=== PATIENT | female | born 1970 | race Caucasian/White ===

== ENCOUNTER 2020-12-06 19:41 | Emergency (ER) | payer BC ==
[2020-12-06] MEDS ORDERED: Aspirin 81 MG Tab.Chew PO ONE (19:50)
[2020-12-06] MEDS ORDERED: Sodium Chloride 0.9% 10 ML Syringe FLUSH PRN (19:50)
[2020-12-06] MEDS ORDERED: Aspirin 81 MG Tab.Chew ONE (19:52)
[2020-12-06] MEDS: Nitroglycerin 0.4 MG Tab.SL SL ONE ×2 (20:04→20:22)
[2020-12-06 20:39] LABS: CHLORIDE,CL 103 mmol/L (98-107); SODIUM,NA 140 mmol/L (136-145)
[2020-12-06] MEDS ORDERED: GI Cocktail Oral Solution 30 ML PO ONE (21:00)
[2020-12-06] MEDS ORDERED: diphenhydrAMINE 50 MG/ML SDV ONE (21:20)
[2020-12-06] MEDS ORDERED: diphenhydrAMINE 50 MG/ML SDV IVPUSH ONE (21:25)
--- NOTE | 2020-12-06 21:42 | EDM.PDOC ---
ED HPI GENERAL MEDICAL PROBLEM - General Chief Complaint: Chest Pain Stated Complaint: chest pain Time Seen by Provider: 12/06/20 20:02 Source of Information: Reports: Patient History Limitations: Reports: No Limitations - History of Present Illness INITIAL COMMENTS - FREE TEXT/NARRATIVE: Patient comes to ER with complaint of epigastric pain that radiates up to both sides of her neck/jaw that started around 7:10pm tonight. Guys sweaty. Lightheaded. No SOB. Has had similar pain episodes in past but not this bad. No history of CAD/heart disease. No formal diagnosis of GERD/hiatal hernia. Has family history of relatives with ND in their 50s. In past no specific trigger for episodes noted. Nothing in particular made them go away. chest pain Pain Score (Numeric/FACES): 7 - Related Data Allergies Allergy/AdvReac Type Severity Reaction Status Date / Time ketorolac [From Toradol] Allergy Anaphylactic Verified 12/06/20 19:41 Shock Home Meds: Home Meds Cholecalciferol (Vitamin D3) [Vitamin D3] 1 tab PO DAILY 12/06/20 [History] Furosemide 20 mg PO DAILY PRN 12/06/20 [History] Levothyroxine Sodium 1 tab PO DAILY 12/06/20 [History] Loratadine 10 mg PO DAILY 12/06/20 [History] Soy Isofla/Blk Cohosh/Mag Bark [Estroven 155 mg Capsule] 1 cap PO DAILY 12/06/20 [History] Ubidecarenone [COQ-10] 1 cap PO DAILY 12/06/20 [History] atorvaSTATin Calcium [Atorvastatin Calcium] 10 mg PO DAILY 12/06/20 [History] buPROPion HCL [Bupropion Xl] 150 mg PO DAILY 12/06/20 [History] clonazePAM [Clonazepam] 0.5 mg PO BEDTIME PRN 12/06/20 [History] Past Medical History HEENT History: Reports: Allergic Rhinitis Cardiovascular History: Reports: High Cholesterol Musculoskeletal History: Reports: Other (See Below) (periodic lower extremity edema) Psychiatric History: Reports: Anxiety Endocrine/Metabolic History: Reports: Hypothyroidism, Obesity/BMI 30+ Social & Family History - Tobacco Use Tobacco Use Status *Q: Former Tobacco User Used Tobacco, but Quit: Yes Month/Year Tobacco Last Used: 2004 - Caffeine Use Caffeine Use: Reports: None - Recreational Drug Use Recreational Drug Use: No ED ROS GENERAL - Review of Systems Review Of Systems: See Below Constitutional: Reports: Diaphoresis. Denies: Fever, Chills, Malaise, Weakness, Fatigue, Decreased Appetite, Weight Loss HEENT: Reports: No Symptoms Respiratory: Reports: No Symptoms Cardiovascular: Reports: Chest Pain, Lightheadedness. Denies: Dyspnea on Exertion, Palpitations, Syncope GI/Abdominal: Reports: No Symptoms : Reports: No Symptoms Musculoskeletal: Reports: No Symptoms Skin: Reports: No Symptoms Neurological: Denies: Headache, Numbness, Paresthesia, Tremors, Trouble Speaking, Gait Disturbance Psychiatric: Reports: No Symptoms ED EXAM, GENERAL - Physical Exam Exam: See Below Exam Limited By: No Limitations General Appearance: Alert, WD/WN, No Apparent Distress Eye Exam: Bilateral Eye: EOMI, PERRL Ears: Normal External Exam, Hearing Grossly Normal Nose: No: Nasal Deformity, Nasal Swelling, Nasal Drainage Throat/Mouth: Normal Lips, Normal Voice, No Airway Compromise Head: Atraumatic, Normocephalic Neck: Normal Inspection, Supple, Non-Tender, Full Range of Motion Respiratory/Chest: No Respiratory Distress, Lungs Clear, Normal Breath Sounds, No Accessory Muscle Use, Chest Non-Tender Cardiovascular: Normal Peripheral Pulses, Regular Rate, Rhythm, No Edema, No Murmur GI/Abdominal: Normal Bowel Sounds, Soft, Non-Tender, No Distention, No Abnormal Bruit (Female) Exam: Deferred Rectal (Female) Exam: Deferred Back Exam: Normal Inspection. No: CVA Tenderness (L), CVA Tenderness (R), Muscle Spasm Extremities: Normal Inspection, Normal Range of Motion, Non-Tender, No Pedal Edema, Normal Capillary Refill Neurological: Alert, Oriented, Normal Cognition, Normal Gait, No Motor/Sensory Deficits Psychiatric: Normal Affect, Normal Mood Skin Exam: Warm, Dry, Intact, Normal Color #1 Interpretation EKG Date: 12/06/20 Time: 18:58 Rhythm: NSR Rate (Beats/Min): 71 [place]: Normal P-Wave: Present QRS: Normal ST-T: Normal QT: Normal Course - Vital Signs Last Recorded V/S: Last Vital Signs Temp 36.9 C 12/06/20 20:05 Pulse 73 12/06/20 20:30 Resp 20 12/06/20 20:30 BP 133/71 12/06/20 20:30 Pulse Ox 99 12/06/20 20:30 - Orders/Labs/Meds Orders: Active Orders 24 hr Category Date Time Status Chest 2V [CR] Stat Exams 12/06/20 19:47 Taken Saline Lock Insert [OM.PC] Routine Oth 12/06/20 19:50 Ordered Labs: Laboratory Tests 12/06/20 12/06/20 12/06/20 Range/Units 19:55 19:55 19:55 WBC 6.6 (4.0-10.2) K/uL RBC 4.49 (3.77-5.09) M/uL Hgb 14.6 (11.7-15.5) g/dL Hct 41.8 (34.0-46.0) % MCV 93.1 (84.0-98.0) fL MCH 32.5 (28.2-33.3) pg MCHC 34.9 (31.7-36.0) g/dL RDW 12.6 (11.2-14.1) % Plt Count 219 (150-350) K/uL Neut % (Auto) 46.6 (45.0-80.0) % Lymph % (Auto) 38.8 (10.0-50.0) % [place] % (Auto) 6.9 (2.0-14.0) % Eos % (Auto) 6.6 H (0.0-5.0) % Baso % (Auto) 1.1 (0.0-2.0) % Neut # (Auto) 3.06 (1.40-7.00) K/uL Lymph # (Auto) 2.54 (0.50-3.50) K/uL [place] # (Auto) 0.45 (0.00-1.00) K/uL Eos # (Auto) 0.43 (0.00-0.50) K/uL Baso # (Auto) 0.07 (0.00-0.20) K/uL D-Dimer, Quantitative < 100 (0-400) ng/mL Sodium 140 (136-145) mmol/L Potassium 3.8 (3.5-5.1) mmol/L Chloride 103 (98-107) mmol/L Carbon Dioxide 25.0 (21.0-32.0) mmol/L BUN 17 (7-18) mg/dL Creatinine 0.86 (0.51-1.17) mg/dL Est Cr Clr Drug Dosing 70.42 mL/min Estimated GFR (MDRD) > 60 mL/min Glucose 94 (74-106) mg/dL Calcium 9.1 (8.5-10.1) mg/dL Magnesium 2.3 (1.8-2.4) mg/dL Total Bilirubin 0.3 (0.2-1.0) mg/dL AST 24 (15-37) U/L ALT 45 (12-78) U/L Alkaline Phosphatase 102 (46-116) IU/L Troponin I 0.008 (0.000-0.056) ng/mL NT-Pro-B Natriuret Pep 11 (0-125) pg/mL Total Protein 7.5 (6.4-8.2) g/dL Albumin 4.3 (3.4-5.0) g/dL Meds: Medications Discontinued Medications Generic Name Dose Route Start Last Admin Trade Name Freq PRN Reason Stop Dose Admin Al Hydroxide/Mg Hydroxide 30 ml 12/06/20 21:00 12/06/20 21:02 Gi Cocktail PO 12/06/20 21:01 30 ml ONETIME ONE Administration Aspirin 324 mg 12/06/20 19:50 12/06/20 19:53 Aspirin PO 12/06/20 19:51 324 mg ONETIME ONE Administration Aspirin Confirm 12/06/20 19:52 12/06/20 20:36 Aspirin Administered 12/06/20 19:53 Not Given Dose 324 mg .ROUTE .STK-MED ONE Diphenhydramine HCl Confirm 12/06/20 21:20 12/06/20 21:27 Benadryl Administered 12/06/20 21:21 Not Given Dose 50 mg .ROUTE .STK-MED ONE Diphenhydramine HCl 50 mg 12/06/20 21:25 12/06/20 21:27 Benadryl IVPUSH 12/06/20 21:26 50 mg ONETIME ONE Administration Nitroglycerin 0.4 mg 12/06/20 20:00 12/06/20 20:22 Nitrostat SL 12/06/20 20:01 0.4 mg ONETIME ONE Administration Sodium Chloride 10 ml 12/06/20 19:50 Saline Flush FLUSH ASDIRECTED PRN Keep Vein Open - Radiology Interpretation Free Text/Narrative:: Chest xray unremarkable - Re-Assessments/Exams Free Text/Narrative Re-Assessment/Exam: 12/06/20 23:51 Patient received aspirin shortly after arrival. Two nitros given with some noted relief of pain. GI cocktail completely resolved pain. CBC/Chem/Mg/Trop/DDimer performed. All within normal limits. No acute changes noted on EKG/CXR. Patient became pain-free. Given patient's history/exam/best improvement noted with GI cocktail, it is suspected that pain very likely could be GI in nature, such as esophageal spasm. Differential includes cardiac etiology. Recommended to patient that she stay overnight observation so that we could perform cardiac monitoring and serial cardiac enzyme monitoring for a more thorough R/O ND. She refused and asked to be discharged home. Precautions reviewed prior to discharge. Recommended speaking with her PCP tomorrow and arranging for stress testing. Discussed dietary changes to try in order to see if she can reduce the frequency of episodes of epigastric discomfort. May need GI referral if stress test normal and symptoms persist. Patient agreeable with plan. Departure - Departure Time of Disposition: 21:36 Disposition: Home, Self-Care 01 Condition: Good Clinical Impression: Chest pain Qualifiers: Chest pain type: unspecified Qualified Code(s): R07.9 - Chest pain, unspecified - Discharge Information *PRESCRIPTION DRUG MONITORING PROGRAM REVIEWED*: Not Applicable *COPY OF PRESCRIPTION DRUG MONITORING REPORT IN PATIENT LILIANA: Not Applicable Instructions: Nonspecific Chest Pain, Adult Referrals: Mulu Oropeza NP [Primary Care Provider] - Forms: ED Department Discharge Additional Instructions: Call your clinic tomorrow and work on arranging a stress test to more fully rule out any cardiac involvement. As discussed, this pain could very well be due to a GI issue such as esophageal spasm/pain or otherwise related to your stomach/reflux. Recommend that you corn picker digestive enzymes that include either ox bile or lipase or both and take one before every main meal. Consider avoiding common trigger foods as we reviewed in the ER. It is better to try to avoid the problem in the first place than try to jimmie it with antacids or meds such as Zantac. You can try Zantac or Prilosec for a month and see if it helps, but best to not use it for long periods of time. Follow up in ER if you have sudden worsening problems. Sepsis Event Note (ED) - Evaluation Sepsis Screening Result: No Definite Risk - Focused Exam Vital Signs: Vital Signs Temp Pulse Resp BP BP Pulse Ox 12/06/20 20:30 73 20 133/71 99 12/06/20 20:22 133/75 12/06/20 20:15 74 16 133/75 99 12/06/20 20:05 36.9 C 78 16 125/82 99 12/06/20 20:04 138/82 12/06/20 19:57 36.6 C 81 22 H 134/97 H 100 12/06/20 19:45 76 19 138/82 99 - My Orders Last 24 Hours: My Active Orders 12/06/20 19:47 Chest 2V [CR] Stat 12/06/20 19:50 Saline Lock Insert [OM.PC] Routine - Assessment/Plan Last 24 Hours: My Active Orders 12/06/20 19:47 Chest 2V [CR] Stat 12/06/20 19:50 Saline Lock Insert [OM.PC] Routine
== END 2020-12-06 21:56 | disposition home or self-care (01) ==
LOC: LL.ED 19:41
DX: R07.9 Chest pain, unspecified (principal); E78.00 Pure hypercholesterolemia, unspecified; E03.9 Hypothyroidism, unspecified; E66.9 Obesity, unspecified; Z87.891 Personal history of nicotine dependence; Z68.27 Body mass index [BMI] 27.0-27.9, adult; Z79.899 Other long term (current) drug therapy; Z88.6 Allergy status to analgesic agent
CPT/HCPCS: 36415; 71046; 80053; 83735; 83880; 84484; 85025; 85379; 93005; 96374; 99285-25; A9270-GY; J1200

== ENCOUNTER 2022-01-18 04:51 | Emergency (ER) | payer BC ==
[2022-01-18 05:54] LABS: CORONAVIRUS COVID-19 NAA NEGATIVE (NEGATIVE); RESPIRATORY SYNCYTIAL VIR NAA NEGATIVE (NEGATIVE)
[2022-01-18] MEDS: Ibuprofen 600 MG Tab PO ONE (05:57)
== END 2022-01-18 06:12 | disposition home or self-care (01) ==
LOC: LL.ED 04:51
DX: J18.9 Pneumonia, unspecified organism (principal); E78.00 Pure hypercholesterolemia, unspecified; E03.9 Hypothyroidism, unspecified; E66.9 Obesity, unspecified; Z68.30 Body mass index [BMI] 30.0-30.9, adult; Z88.6 Allergy status to analgesic agent; Z79.899 Other long term (current) drug therapy; Z20.822 Contact with and (suspected) exposure to COVID-19
CPT/HCPCS: 0241U; 71046; 87081; 87430; 99284; 99284-25; A9270-GY

== ENCOUNTER 2022-01-20 09:08 | Emergency (ER) | payer BC ==
[2022-01-20] MEDS ORDERED: Sodium Chloride 0.9% 10 ML Syringe FLUSH PRN (09:15)
[2022-01-20] MEDS ORDERED: Albuterol 0.083% 2.5 MG/3 ML Neb Soln NEB ONE (09:25)
[2022-01-20] MEDS ORDERED: cefTRIAXone 2 GM Vial IVPUSH SCH (09:30)
[2022-01-20 10:02] LABS: ANION GAP 8.5 meq/L (7-15); CHLORIDE,CL 103 mmol/L (98-107); SODIUM,NA 139 mmol/L (136-145)
[2022-01-20] MEDS ORDERED: methylPREDNISolone Sodium Succinate 125 MG/2 ML SDV IVPUSH ONE (10:38)
[2022-01-20] MEDS ORDERED: Iopamidol 755 Mg/ML 100 ML Bottle IVPUSH STA (10:42)
== END 2022-01-20 13:00 | disposition home or self-care (01) ==
LOC: LL.ED 09:08
DX: J18.9 Pneumonia, unspecified organism (principal); E78.00 Pure hypercholesterolemia, unspecified; E03.9 Hypothyroidism, unspecified; E66.9 Obesity, unspecified; Z88.6 Allergy status to analgesic agent; Z68.30 Body mass index [BMI] 30.0-30.9, adult; Z87.891 Personal history of nicotine dependence; Z20.822 Contact with and (suspected) exposure to COVID-19
CPT/HCPCS: 36415; 71275; 80053; 83605; 84484; 85025; 85379; 86140; 87040; 93005; 93010; 94640; 96374; 96375; 99284; 99284-25; J0696; J2930; J7613-GY; Q9967; U0002

== ENCOUNTER 2023-03-31 13:31 | Emergency (ER) | payer BC ==
[2023-03-31 14:35] LABS: APPEARANCE,URINE CLOUDY; BILIRUBIN,URINE SMALL (NEGATIVE); COLOR,URINE BROWN; GLUCOSE,URINE NEGATIVE (NEGATIVE); KETONES,URINE TRACE mg/dL (NEGATIVE); LEUKOCYTE ESTERASE,URINE NEGATIVE (NEGATIVE); NITRITE,URINE NEGATIVE (NEGATIVE); OCCULT BLOOD,URINE LARGE (NEGATIVE); PH,URINE 5.5 (5.0-9.0); PROTEIN,URINE >=300 mg/dL (NEGATIVE)
[2023-03-31 14:37] LABS: BACTERIA,URINE MODERATE /HPF (NONE TO FEW); EPITHELIAL CELLS,URINE MANY /LPF; RBC,URINE PACKED /HPF; WBC,URINE 0-5 /HPF
[2023-03-31] MEDS ORDERED: Take Home: Sulfamethoxazole/Trimethoprim 800-160 MG Tab, 6 Tab Pack PO ONE (14:46)
== END 2023-03-31 15:14 | disposition home or self-care (01) ==
LOC: LL.ED 13:31
DX: N39.0 Urinary tract infection, site not specified (principal); E78.00 Pure hypercholesterolemia, unspecified; E03.9 Hypothyroidism, unspecified; E66.9 Obesity, unspecified; Z68.30 Body mass index [BMI] 30.0-30.9, adult; Z88.8 Allergy status to other drugs, medicaments and biological substances; Z86.16 Personal history of COVID-19; Z79.899 Other long term (current) drug therapy
CPT/HCPCS: 81001; 99283; A9270-GY

== ENCOUNTER 2025-05-12 17:50 | Emergency (ER) | payer BC ==
[2025-05-12 18:24] LABS: BASOPHILS ABSOLUTE AUTO 0.05 K/uL (0.00-0.20); BASOPHILS PERCENT AUTO 0.8 % (0.0-2.0); EOSINOPHILS ABSOLUTE AUTO 0.19 K/uL (0.00-0.50); HEMATOCRIT 39.7 % (34.0-46.0); HEMOGLOBIN 14.4 g/dL (11.7-15.5); LYMPHOCYTES ABSOLUTE AUTO 2.58 K/uL (0.50-3.50); MEAN CORPUSCULAR HEMOGLOBIN 32.9 pg (28.2-33.3); MEAN CORPUSCULAR HGB CONC 36.3 g/dL (31.7-36.0); MEAN CORPUSCULAR VOLUME 90.6 fL (84.0-98.0); MONOCYTES ABSOLUTE AUTO 0.47 K/uL (0.00-1.00); MONOCYTES PERCENT AUTO 7.5 % (2.0-14.0); NEUTROPHILS PERCENT AUTO 47.7 % (45.0-80.0); PLATELET COUNT,PLT 224 K/uL (150-350); RED BLOOD CELL COUNT 4.38 M/uL (3.77-5.09); RED CELL DISTRIBUTION WIDTH 11.6 % (11.2-14.1); WHITE BLOOD CELL COUNT,WBC 6.3 K/uL (4.0-10.2)
[2025-05-12 18:33] LABS: PTT,PARTIAL THROMBOPLSTIN TIME 24.8 SEC (23.8-34.4)
[2025-05-12 18:42] LABS: ALANINE AMINOTRANSFERASE,ALT 41 U/L (12-78); ALBUMIN 4.3 g/dL (3.4-5.0); ALKALINE PHOSPHATASE 122 IU/L (46-116); ANION GAP 9.3 meq/L (7-15); ASPARTATE AMNIOTRANSFERASE,AST 26 U/L (15-37); BILIRUBIN TOTAL 0.4 mg/dL (0.2-1.0); BLOOD UREA NITROGEN,BUN 21 mg/dL (7-18); CARBON DIOXIDE,CO2 26.7 mmol/L (21.0-32.0); CHLORIDE,CL 104 mmol/L (98-107); CREATININE 0.81 mg/dL (0.51-1.17); GLUCOSE RANDOM 86 mg/dL (70-99); POTASSIUM,K 3.7 mmol/L (3.5-5.1); PROTEIN TOTAL,TP 7.4 g/dL (6.4-8.2); SODIUM,NA 140 mmol/L (136-145); TSH ULTRASENSITIVE 0.938 mIU/mL (0.358-3.740)
[2025-05-12 18:51] LABS: ESTIMATED GFR 86 mL/min (>=60)
== END 2025-05-12 19:58 | disposition home or self-care (01) ==
LOC: LL.ED 17:50 → SUPCPDRO 17:50 → LL.ED 19:58
DX: I49.3 Ventricular premature depolarization (principal); E78.00 Pure hypercholesterolemia, unspecified; E03.9 Hypothyroidism, unspecified; E66.9 Obesity, unspecified; Z86.16 Personal history of COVID-19; Z90.710 Acquired absence of both cervix and uterus; Z87.891 Personal history of nicotine dependence; Z79.899 Other long term (current) drug therapy; Z79.890 Hormone replacement therapy; Z88.8 Allergy status to other drugs, medicaments and biological substances
CPT/HCPCS: 36415; 71046; 80053; 84443; 84484; 85025; 85610; 85730; 93005; 93010; 99284; 99285

== ENCOUNTER 2025-09-03 08:53 | Day surgery (SDC) | payer BC ==
[~2025-09-03 08:53] MED LIST: Midazolam 1 MG/ML 2 ML SDV ONE; Propofol 200 MG/20 ML SDV ONE; Sodium Chloride 0.9% 10 ML Syringe FLUSH PRN
[2025-09-03] MEDS: Lactated Ringers 1,000 ML IV SCH (09:08)
[2025-09-03] MEDS ORDERED: Scopalamine 1mg/3day Transdermal Patch ONE (09:41)
[2025-09-03] MEDS ORDERED: Propofol 200 MG/20 ML SDV IV ONE (10:16)
[2025-09-03] MEDS ORDERED: Ondansetron 4 MG/2 ML SDV IVPUSH ONE (10:16)
[2025-09-03] MEDS ORDERED: Propofol 200 MG/20 ML SDV ONE (10:29)
== END 2025-09-03 10:48 | disposition home or self-care (01) ==
LOC: LL.SDS 08:53
PROVIDERS: ATTEND Surgery
DX: Z12.11 Encounter for screening for malignant neoplasm of colon (principal); D12.4 Benign neoplasm of descending colon; K62.1 Rectal polyp; K57.30 Diverticulosis of large intestine without perforation or abscess without bleeding; E78.00 Pure hypercholesterolemia, unspecified; E03.9 Hypothyroidism, unspecified; E66.9 Obesity, unspecified; Z88.8 Allergy status to other drugs, medicaments and biological substances; Z68.37 Body mass index [BMI] 37.0-37.9, adult; Z79.899 Other long term (current) drug therapy; Z79.890 Hormone replacement therapy; Z87.891 Personal history of nicotine dependence
CPT/HCPCS: 00811; 45384; A9270; J2250; J2405; J2704; J7120